=== PATIENT | male | born 1965 | race Caucasian/White ===

== ENCOUNTER 2016-06-15 08:00 | Inpatient (IN) | payer BC, OTHER ==
--- NOTE | ~2016-06-15 | OP ---
Record Of Operation [facility] [address] [facility] [place]. [address] NAME: JORGITO BOLANOS : 63 STATUS : ADM IN PAT#: [id number] AGE: 51 ADM/REG DATE : 06/15/16 MR#: [id number] REPORT SERV DATE: 06/15/16 DICTATED BY: JORGITO MCGILL DATE: 06/15/16 REPORT STATUS : Draft TRANSCRIBED BY: MODL DATE: 06/15/16 DATE OF PROCEDURE: PREOPERATIVE DIAGNOSES: 1. Severe disk degeneration, L5-S1. 2. Grade 1 spondylolisthesis/retrolisthesis, with severe foraminal stenosis, bilateral, L5- S1. 3. Partial drop foot, bilateral. POSTOPERATIVE DIAGNOSES: 1. Severe disk degeneration, L5-S1. 2. Grade 1 spondylolisthesis/retrolisthesis, with severe foraminal stenosis, bilateral, L5- S1. 3. Partial drop foot, bilateral. PROCEDURE: 1. Microscopic and navigation-assisted surgery. 2. Left and right L5-S1 hemilaminectomy, foraminotomy, and complete facetectomy. 3. Gottlieb sacral dome osteotomy, posterior column. 4. Transforaminal diskectomy, L5-S1. 5. Anterior interbody capstone cage insertion. 6. Posterolateral interbody fusion with local bone graft and allograft. 7. Posterior percutaneous Voyager instrumentation, L5-S1. SURGEON: Jorgito Mcgill D.O. COMMUNITY SPORTS COORDINATOR: Stephen Car. ANESTHESIA: General. ESTIMATED BLOOD LOSS: 100 mL. INDICATIONS FOR SURGERY: Indications for surgery and risks were explained. They are listed in last office note as well as the history and physical. See that for detail. DESCRIPTION OF PROCEDURE: Antibiotic prophylaxis was given. Neurophysiology monitoring leads were inserted. The patient was brought to the operative suite. General anesthetic including endotracheal intubation was administered. Grey catheter was inserted with sterile technique. The patient was placed prone on a Emmanuel spine frame. Bony prominences were carefully padded. Thoracolumbar spine scrubbed with solution. DuraPrep was painted. Sterile drapes were applied. A small stab wound was carried out over the right posterior superior iliac spine. A percutaneous pin with navigational frame attached was inserted in PSIS. Intraoperative CT scan with O-arm was obtained. CT information was used to register the navigational system. Record Of Operation [facility] [address] [facility] [place]. [address] NAME: JORGITO BOLANOS : 63 STATUS : ADM IN PAT#: [id number] AGE: 51 ADM/REG DATE : 06/15/16 MR#: [id number] REPORT SERV DATE: 06/15/16 DICTATED BY: JORGITO MCGILL DATE: 06/15/16 REPORT STATUS : Draft TRANSCRIBED BY: MODL DATE: 06/15/16 With navigational assistance, I identified the left and right facet joint starting on the right side just lateral to the facet joint. A 3 cm skin incision was carried out. A blunt navigated probe was placed through the fascia and muscle, and docked over the facet joint. Muscle dilator was inserted, followed by placement of a tubular retractor attached to an arm mount on the table. The microscope was sterilely draped and used throughout the remainder of the procedure. With navigational assistance, I determined the top of the pedicle of S1, the inferior pedicle of L5. I also planned to remove a very small 2 to 3 mm at the top of the pedicle of S1, as well as the posterior superior corner of the body of S1 to allow entry into the disk space below the exiting nerve root. I used a cutting bur, a bunny bur, with navigational assistance, I transected across the top of the pedicle of S1. I also transected through the lamina, I removed the entire lamina of L5, the pars interarticularis of L5, and skeletonized from the inferior pedicle of L5 to the superior pedicle of S1, and the Gottlieb posterior column osteotomy was carried out by using a cutting bur and bunny bur to remove the posterior superior corner of the body of S1, and created a sacral dome osteotomy. I then carried out a transforaminal diskectomy with curettes, rongeurs, and disk kwadwo, the posterior- inferior spondylitic bar that was compressing the exiting L5 nerve root was debrided and removed. The nerve was completely free of compression. After the transforaminal diskectomy was completed, the wound was irrigated. The retractor was removed. I moved to the left side. On the left side, I carried out the same identical steps. I carried out a 3 cm skin incision just lateral to the facet joint. I placed a tubular retractor. I then carried out the same identical technique with hemilaminectomy, foraminotomy, and complete facetectomy, the sacral dome Gottlieb osteotomy, followed by transforaminal diskectomy. Interbody trial was carried out. We then placed a 10 mm x 35 mm Capstone cage filled with allograft. The cage was inserted through the transforaminal approach into the midline against the anterior longitudinal ligament. A posterolateral interbody fusion with local bone graft, allograft, and extra-small dosage of bone protein was carried out. The retractor was removed. The navigational system was re-registered. The percutaneous Voyager pedicle screws were then placed by initially tapping the pedicle of L5 and S1 bilaterally, followed by placement of a 7.5 x 50 mm polyaxial Voyager screw at both L5 and S1 bilaterally. With the screw extenders, extending just above the skin the 35 mm Contoured lordotic captured olaf was placed through the top of the screw extenders, and reduced into the tulip of the pedicle screws. The set screws were inserted and tightened with a torque wrench providing rigid stability. The screw extenders were removed. Intraoperative AP and lateral x-rays were taken, as well as intraoperative CT scan, showing excellent position of the implants, and the complete decompression of the nerve roots. The fascial openings were closed with a single interrupted #1 Vicryl suture. The subcutaneous tissue closed with 2-0 Vicryl suture, 2-0 vertical mattress nylon suture was used for skin closure. Sterile dressings were applied. The patient awakened, extubated, and taken to recovery room in satisfactory condition having tolerated procedure well. Record Of Operation [address] [address] NAME: JORGITO BOLANOS : 63 STATUS : ADM IN [facility]#: [id number] AGE: 51 ADM/REG DATE : 06/15/16 MR#: [id number] REPORT SERV DATE: 06/15/16 DICTATED BY: JORGITO MCGILL DATE: 06/15/16 REPORT STATUS : Draft TRANSCRIBED BY: APRIL DATE: 06/15/16 EVELIA/APRIL Jorgito Mcgill D.O. / [id number] CC: Jorgito Mcgill D.O.
--- NOTE | ~2016-06-15 | PREOPHP ---
PreOp History and Physical [facility] [address] [place]. [address] NAME: JORGITO BOLANOS : 63 STATUS : ADM IN PAT#: [id number] AGE: 51 ADM/REG DATE : 06/15/16 MR#: [id number] REPORT SERV DATE: 06/15/16 DICTATED BY: JORGITO MCGILL DATE: 06/15/16 REPORT STATUS : Draft TRANSCRIBED BY: MODL DATE: 06/15/16 CHIEF COMPLAINT: Back pain and bilateral leg pain. HISTORY OF PRESENT ILLNESS: A 51-year-old male, who is disabled but presents with severe back pain and bilateral leg pain. He has been treated by Dr. Valerie Felix and another orthopedic surgeon in [facility] for degenerative disc disease and spinal stenosis. The patient's pain varies between 9 and 10 on a daily basis. It is worse at night or when he is going from sitting to standing. It is intensified also by standing and walking. He gets some relief by lying down and changing positions frequently. He has a normal Zung Depression Scale. He is nonsmoker. Plain x-rays reveal severe disc degeneration and collapse of the disc space at L5-S1. There is a large spondylotic bar along the posterior- inferior border of the body of C5. There is severe foraminal stenosis on the left and right side. There is a grade 1 retrolisthesis/spondylolisthesis at L5-S1. There is nerve impingement bilaterally on the L5 nerve roots. The patient also does have weakness bilaterally of L5 innervated musculature. With all the above, the patient is brought to surgery for left and right L5-S1 hemilaminectomy, foraminotomy, and complete facetectomy. There will be a nobles posterior column osteotomy because of the severe collapse of the disc space and this will allow some correction of the sacral slope as well. In addition, it will allow safe entry below the exiting nerve to avoid any potential nerve contusion or excessive retraction. The patient will have an interbody cage insertion and posterolateral interbody fusion. Finally, there be posterior percutaneous instrumentation using our Venture system. Prior to surgery, risks, benefits, alternatives, and expectations have been explained in great detail. Consent form has been signed. Also please note, because of the complexity of surgery and the need to identify correct level of surgery intraoperatively as well as desire to carry out the safest and most precise dissection, we feel intraoperative navigation is mandatory. PAST MEDICAL HISTORY: Included sleep apnea, hypothyroidism, hypercholesterolemia, diabetes mellitus type 2. He has had hypertension. Cardiac pacemaker due to dysrhythmia. He has had anxiety disorder and DVTs. PAST SURGICAL HISTORY: He has had anterior cervical discectomy and fusion. He has had a cardiac pacemaker and knee arthroscopy. CURRENT MEDICATIONS: Include Coumadin, Zanaflex, , Seroquel, Zantac, ProAir, hydrocodone, lisinopril, lovastatin, Nitrostat, pantoprazole, amlodipine, , Neurontin, and glyburide. ALLERGIES: NONE. SOCIAL HISTORY: He is . Disabled. Does not use any alcohol. He has been a smoker previously. FAMILY HISTORY: His mother had a malignant lymphoma. REVIEW OF SYSTEMS: PreOp History and Physical [address] [address] NAME: JORGITO BOLANOS : 63 STATUS : ADM IN [facility]#: [id number] AGE: 51 ADM/REG DATE : 06/15/16 MR#: [id number] REPORT SERV DATE: 06/15/16 DICTATED BY: JORGITO MCGILL DATE: 06/15/16 REPORT STATUS : Draft TRANSCRIBED BY: APRIL DATE: 06/15/16 He denies any current chest pain, pressure, or shortness of breath. He has had no recent change in bowel or bladder function. PHYSICAL EXAMINATION: VITAL SIGNS: He is 5 feet 10 inches, 280 pounds, although he appears to be even bigger, his BMI is 40.2. GENERAL: He is alert, cooperative, well oriented. He ambulates. HEENT: Normocephalic. He is partially balding. NECK: Supple. Pupils are equal and reactive to light. Extraocular muscles are intact. Oral exam is grossly normal. LUNGS: Clear to auscultation. HEART: Regular rate and rhythm. ABDOMEN: Soft with good bowel sounds. MUSCULOSKELETAL: The spine itself has no gross deformities. There is decreased range of motion particularly in extension with severe pain on extension, but some relief of flexion. He cannot heel walk. He can toe walk with coaxing. He has some stocking-glove decreased sensation from the mid leg distally bilaterally. His patella and Achilles reflexes are both completely absent. His motor strengths are normal except his EHL is 4-/5 bilaterally. His posterior tibialis and the tibialis anterior are also 4/5. Bridget signs are negative. Fabere signs are negative. Orthopedically, he has no pain with moving of hips, knees, or ankles. There are weak pulses in the lower extremities. SKIN: He has no abnormal skin lesions. ASSESSMENT AND RECOMMENDATIONS: As listed above. SH/MODL Jorgito Mcgill D.O. / [id number] CC: Jorgito Mcgill D.O.
--- NOTE | ~2016-06-15 | DS ---
Discharge Summary [facility] [address] [facility] [place]. [address] NAME: JORGITO BOLANOS : 63 STATUS : DIS IN PAT#: [id number] AGE: 51 ADM/REG DATE : 06/15/16 MR#: [id number] REPORT SERV DATE: 06/29/16 DICTATED BY: JORGITO MCGILL DATE: 06/28/16 REPORT STATUS : Draft TRANSCRIBED BY: MODL DATE: 06/28/16 Data Collection from hospitalization DISCHARGE DIAGNOSIS(ES): 1. Severe disk degeneration, L5-S1. 2. Grade 1 spondylolisthesis/retrolisthesis with severe foraminal stenosis, bilateral L5- S1. 3. Partial drop foot bilateral. 4. Type 2 diabetes mellitus. 5. History of hypertension. 6. Sleep apnea. 7. Hypothyroidism. 8. Hypercholesterolemia. 9. Anxiety disorder. 10.Former smoker. CONSULTATIONS: Qiana Dykes M.D. PROCEDURES PERFORMED: Microscopic and navigation-assisted surgery; left and right L5-S1 hemilaminectomy, foraminotomy, and complete facetectomy; Gottlieb sacral dome osteotomy, posterior column; transforaminal diskectomy, L5-S1; anterior interbody Capstone cage insertion; posterolateral interbody fusion with local bone graft and allograft; posterior percutaneous Voyager instrumentation, L5-S1, 06/15/2016. PATHOLOGY: Spine, bone, and tissue L5-S1 - fibrocartilage consistent with intervertebral disk, benign bone fragments with degenerative changes. MEDICATIONS: The patient left against medical advice. CONDITION AT DISCHARGE: DISPOSITION: The patient left against medical advice. HOSPITAL COURSE: This is a 51-year-old man who had been disabled, but presented with severe back and bilateral leg pain. He had been treated by Dr. Valerie Felix and another orthopedic surgeon in the [facility] for degenerative disk disease and spinal stenosis. He said that his pain varies between 9 and 10 on a daily basis. It is worse at night or when he goes from a sitting to standing position. It was intensified by standing and walking. He does get some relief by lying down and changing positions frequently. X-rays had revealed severe disk degeneration and collapse of the disk space at L5-S1. There is a large spondylotic bar along the posterior inferior border of the body of C5. There is severe foraminal stenosis on the left and right side. There is grade 1 retrolisthesis/spondylolisthesis at L5-S1. There is nerve impingement bilaterally on the L5 nerve root. The patient had weakness bilaterally at L5 innervated musculature. Treatment options were discussed and it was elected to proceed with surgical intervention. He was admitted to the hospital at this time for further evaluation and treatment. Upon admission, he was taken to the operating room where he underwent the above-mentioned Discharge Summary [address] [place]. [address] NAME: JORGITO BOLANOS : 63 STATUS : DIS IN PAT#: [id number] AGE: 51 ADM/REG DATE : 06/15/16 MR#: [id number] REPORT SERV DATE: 06/29/16 DICTATED BY: JORGITO MCGILL DATE: 06/28/16 REPORT STATUS : Draft TRANSCRIBED BY: APRIL DATE: 06/28/16 procedure. He tolerated this well and there were no complications. Postoperatively, he was seen by Dr. Qiana Dykes. He had been asked to see the patient regarding hypertension and diabetes mellitus. He did complain of severe low back pain. Sliding scale insulin was provided. Amaryl was held. Hemoglobin A1c was going to be checked. IV fluids were changed to normal saline. TEMO inhibitor and hydrochlorothiazide were held. He was to use his CPAP nightly. We encouraged him to stop smoking and using snuff. On postoperative day one, he was evaluated by Physical Therapy. Coumadin was given. He was doing well, was up walking in the gottlieb. He was felt to have some mild volume overload with congestive heart failure pattern on a chest x-ray. He denied any chest pain or shortness of breath. He was felt to have acute hypoxemic respiratory failure secondary to over sedation. He had some jerking movement of his upper extremities and legs. He would answer questions appropriately and then go back to sleep. O2 support and CPAP continued. Creatinine level had increased to 1.83. Nephrotoxins would be held. On the , he was in no acute distress. He was wanting to go home. He was making significant improvement. IV fluids were stopped. Grey catheter was removed. Creatinine had improved to 1.55. On 06/18/2016, the patient had a run of ventricular tachycardia. The patient was stating that he was ready for discharge. We spoke with the patient about what ventricular tachycardia was and explained that it was a life-threatening arrhythmia. The patient asked if his pacemaker would help with ventricular tachycardia and we told the patient, no, that only an AICD may help with ventricular tachycardia. The patient refused to let the [facility] Horticulture Supervisor see him. He said he wanted to go home and follow up with his outreach rep, Dr. Walter, the following Monday. We instructed the patient that he could go home and go into ventricular tachycardia and . We asked the patient if we could perform cardiac enzymes and EKG to assess his cardiac status, but he refused. He was asked to stay one more night, so we could monitor him and the patient refused. The patient was insistent upon leaving and he left the hospital against medical advice. Information collected by: Deandra Castro I submit the above information as my discharge summary. TG/MODL Jorgito Mcgill D.O. / [id number] CC: Jorgito Mcglil D.O.
[~2016-06-15 08:00] MED LIST: AMARYL2 PO; ASAB PO; ATARAX50B PO; C5 PO; DITRO5 PO; GAS-X80 MG PO; GLUCPH PO; HYDROCHLOROT12.5 MG PO; LOTE40 PO; LOVENOX40 SC; MAGOX4 PO; METHOC500B PO; MEVACOR40 MG PO; MIRAPEX250 PO; NEUR300 PO; NORCO1 TAB PO; NORV10 PO; PRIN20 PO; PROAIR HFA INH; PROAIRRESP INH; PROTONIX PO; PROZAC40 MG PO; SEROQUEL200 MG PO; SYN.05 PO; TRAZ100 PO; ZANAFLEX 4 MG TA4 MG PO; ZANTAC 150 PO; ZANTAC150 MG PO
[2016-06-15 09:27] LABS: HEMATOCRIT 39.1 % (40.0-51.0); HEMOGLOBIN 12.7 g/dL (13.6-17.8)
[2016-06-15 09:35] LABS: INTERNATIONAL NORMAL RATI 1.5 UNITS (-)
[2016-06-15 09:37] LABS: PROTIME (NOT ORD) 18.1 SEC (12.0-14.5)
[2016-06-15 09:39] LABS: CALCIUM, SERUM 8.9 MG/DL (8.5-10.4); CHLORIDE, SERUM 107 MMOL/L (96-112); CO2 (CARBON DIOXIDE) 29 MMOL/L (24-34); CREATININE 1.31 MG/DL (0.70-1.30); GFR AFRICAN AMERICAN 72 ML/MIN (>=60); GFR NON AFRICAN AMERICAN 62 ML/MIN (>=60); GLUCOSE, SERUM 115 MG/DL (60-99); POTASSIUM, SERUM 3.9 MMOL/L (3.5-5.3); SODIUM, SERUM 143 MMOL/L (135-148)
[2016-06-15 09:41] LABS: BUN (BLOOD UREA NITROGEN) 16 MG/DL (6-23)
[2016-06-15 14:27] LABS: BASOPHILS 0.3 %; BASOPHILS ABSOLUTE 0.02 10/3/uL (0.0-0.16); EOSINOPHILS 3.4 %; EOSINOPHILS ABSOLUTE 0.24 10/3/uL (0.0-0.53); HEMATOCRIT 35.8 % (40.0-51.0); HEMOGLOBIN 11.7 g/dL (13.6-17.8); IMMATURE GRANULOCYTES 0.7 %; IMMATURE GRANULOCYTES ABSOLUTE 0.05 10/3/uL (0.0-0.11); LYMPHOCYTES ABSOLUTE 2.16 10/3/uL (0.67-4.30); MEAN CORPUS HGB CONC 32.7 g/dL (32.0-36.0); MEAN CORPUSCULAR HEMOGLOB 24.8 pg (26.0-34.0); MEAN PLATELET VOLUME 9.4 fL (9.2-13.0); MONOCYTES ABSOLUTE 0.42 10/3/uL (0.21-1.20); NEUTROPHILS 58.6 %; NEUTROPHILS ABSOLUTE 4.07 10/3/uL (2.02-8.40); PLATELET COUNT 192 10/3/uL (150-400); RBC DISTRIBUTION WIDTH 15.5 % (12.0-16.0); RED CELL COUNT 4.72 10/6/uL (4.7-6.1)
[2016-06-15 14:28] LABS: MANUAL DIFF NO %; MEAN CORPUSCULAR VOLUME 75.8 fL (80-100)
[2016-06-15 14:40] LABS: BUN (BLOOD UREA NITROGEN) 17 MG/DL (6-23); CALCIUM, SERUM 8.5 MG/DL (8.5-10.4); CHLORIDE, SERUM 105 MMOL/L (96-112); CO2 (CARBON DIOXIDE) 30 MMOL/L (24-34); CREATININE 1.56 MG/DL (0.70-1.30); GFR AFRICAN AMERICAN 58 ML/MIN (>=60); GFR NON AFRICAN AMERICAN 50 ML/MIN (>=60); GLUCOSE, SERUM 104 MG/DL (60-99); POTASSIUM, SERUM 4.1 MMOL/L (3.5-5.3); SODIUM, SERUM 142 MMOL/L (135-148)
[2016-06-16 04:54] LABS: BASOPHILS 0.2 %; BASOPHILS ABSOLUTE 0.02 10/3/uL (0.0-0.16); EOSINOPHILS 0.7 %; EOSINOPHILS ABSOLUTE 0.08 10/3/uL (0.0-0.53); HEMATOCRIT 35.3 % (40.0-51.0); HEMOGLOBIN 11.2 g/dL (13.6-17.8); IMMATURE GRANULOCYTES 0.2 %; IMMATURE GRANULOCYTES ABSOLUTE 0.02 10/3/uL (0.0-0.11); LYMPHOCYTES 15.2 %; LYMPHOCYTES ABSOLUTE 1.82 10/3/uL (0.67-4.30); MANUAL DIFF NO %; MEAN CORPUS HGB CONC 31.7 g/dL (32.0-36.0); MEAN CORPUSCULAR HEMOGLOB 24.8 pg (26.0-34.0); MEAN CORPUSCULAR VOLUME 78.3 fL (80-100); MEAN PLATELET VOLUME 10.1 fL (9.2-13.0); MONOCYTES ABSOLUTE 0.96 10/3/uL (0.21-1.20); NEUTROPHILS 75.7 %; NEUTROPHILS ABSOLUTE 9.11 10/3/uL (2.02-8.40); PLATELET COUNT 224 10/3/uL (150-400); RBC DISTRIBUTION WIDTH 15.9 % (12.0-16.0); RED CELL COUNT 4.51 10/6/uL (4.7-6.1)
[2016-06-16 05:09] LABS: ALBUMIN 3.3 G/DL (3.5-5.0); BUN (BLOOD UREA NITROGEN) 19 MG/DL (6-23); CALCIUM, SERUM 8.1 MG/DL (8.5-10.4); CHLORIDE, SERUM 100 MMOL/L (96-112); CO2 (CARBON DIOXIDE) 30 MMOL/L (24-34); CREATININE 1.83 MG/DL (0.70-1.30); GFR AFRICAN AMERICAN 48 ML/MIN (>=60); GFR NON AFRICAN AMERICAN 41 ML/MIN (>=60); GLUCOSE, SERUM 112 MG/DL (60-99); PHOSPHORUS, SERUM 4.3 MG/DL (2.5-4.5); POTASSIUM, SERUM 4.3 MMOL/L (3.5-5.3); SODIUM, SERUM 138 MMOL/L (135-148)
[2016-06-16 13:24] LABS: BE (BASE EXCESS) -3.4 MEQ/L (0 +/- 2.5); CARBOXYHEMOGLOBIN 1.1 % (0-3); DEVICE NC; HCO3 (ACTUAL BICARBONATE) 21.1 MEQ/L (23-27); HEMOBLOGIN CONTENT 11.5 G/DL (14-18); INSTRUMENT SERIAL # 11843; METHEMOGLOBIN 0.4 % (0-3); PCO2 (CO2 TENSION) 36 MMHG (35-45); PO2 (O2 TENSION) 73 MMHG (79-93); SAMPLE Arterial; pH 7.39 (7.37-7.43)
[2016-06-16 13:25] LABS: ALLENS TEST Pos
[2016-06-16 14:04] LABS: BUN (BLOOD UREA NITROGEN) 22 MG/DL (6-23); CALCIUM, SERUM 7.9 MG/DL (8.5-10.4); CHLORIDE, SERUM 99 MMOL/L (96-112); CO2 (CARBON DIOXIDE) 25 MMOL/L (24-34); CREATININE 1.98 MG/DL (0.70-1.30); GFR AFRICAN AMERICAN 44 ML/MIN (>=60); GFR NON AFRICAN AMERICAN 38 ML/MIN (>=60); GLUCOSE, SERUM 130 MG/DL (60-99); PHOSPHORUS, SERUM 2.7 MG/DL (2.5-4.5); POTASSIUM, SERUM 4.5 MMOL/L (3.5-5.3); SODIUM, SERUM 133 MMOL/L (135-148); TROPONIN I <0.02 NG/ML (<0.05)
[2016-06-17 06:09] LABS: BASOPHILS 0.2 %; BASOPHILS ABSOLUTE 0.02 10/3/uL (0.0-0.16); EOSINOPHILS 0.1 %; EOSINOPHILS ABSOLUTE 0.01 10/3/uL (0.0-0.53); HEMATOCRIT 33.5 % (40.0-51.0); HEMOGLOBIN 10.8 g/dL (13.6-17.8); IMMATURE GRANULOCYTES 0.3 %; IMMATURE GRANULOCYTES ABSOLUTE 0.04 10/3/uL (0.0-0.11); LYMPHOCYTES 10.2 %; LYMPHOCYTES ABSOLUTE 1.21 10/3/uL (0.67-4.30); MEAN CORPUS HGB CONC 32.2 g/dL (32.0-36.0); MEAN CORPUSCULAR HEMOGLOB 24.9 pg (26.0-34.0); MEAN CORPUSCULAR VOLUME 77.4 fL (80-100); MEAN PLATELET VOLUME 9.3 fL (9.2-13.0); MONOCYTES 9.6 %; MONOCYTES ABSOLUTE 1.14 10/3/uL (0.21-1.20); NEUTROPHILS 79.6 %; NEUTROPHILS ABSOLUTE 9.45 10/3/uL (2.02-8.40); PLATELET COUNT 173 10/3/uL (150-400); RED CELL COUNT 4.33 10/6/uL (4.7-6.1); WHITE BLOOD CELLS 11.9 10/3/uL (4.5-10.5)
[2016-06-17 06:13] LABS: MANUAL DIFF NO %
[2016-06-17 06:20] LABS: INTERNATIONAL NORMAL RATI 1.5 UNITS (-)
[2016-06-17 06:21] LABS: ALBUMIN 2.9 G/DL (3.5-5.0); BUN (BLOOD UREA NITROGEN) 20 MG/DL (6-23); CALCIUM, SERUM 8.1 MG/DL (8.5-10.4); CHLORIDE, SERUM 105 MMOL/L (96-112); CO2 (CARBON DIOXIDE) 25 MMOL/L (24-34); CREATININE 1.55 MG/DL (0.70-1.30); GFR AFRICAN AMERICAN 59 ML/MIN (>=60); GFR NON AFRICAN AMERICAN 51 ML/MIN (>=60); GLUCOSE, SERUM 122 MG/DL (60-99); PHOSPHORUS, SERUM 2.3 MG/DL (2.5-4.5); POTASSIUM, SERUM 4.4 MMOL/L (3.5-5.3); SODIUM, SERUM 139 MMOL/L (135-148)
[2016-06-18 06:15] LABS: INTERNATIONAL NORMAL RATI 1.7 UNITS (-); PROTIME (NOT ORD) 19.4 SEC (12.0-14.5)
== END 2016-06-18 16:00 | disposition left against medical advice (07) | DRG 459 ==
LOC: SDC/OF 08:00 → PACU 14:07 → 3SO 16:11 → 2SO 06-16 14:45
PROVIDERS: Nurse Practitioner; Orthopaedic Surgery Orthopaedic Surgery of the Spine
DX: M43.17 Spondylolisthesis, lumbosacral region (principal); J96.01 Acute respiratory failure with hypoxia; I47.2 Ventricular tachycardia; N17.9 Acute kidney failure, unspecified; M51.37 Other intervertebral disc degeneration, lumbosacral region; M21.371 Foot drop, right foot; M21.372 Foot drop, left foot; E78.5 Hyperlipidemia, unspecified; E03.9 Hypothyroidism, unspecified; Z95.0 Presence of cardiac pacemaker; Z86.718 Personal history of other venous thrombosis and embolism; E66.9 Obesity, unspecified; Z68.39 Body mass index [BMI] 39.0-39.9, adult; N18.2 Chronic kidney disease, stage 2 (mild); E11.9 Type 2 diabetes mellitus without complications; I49.5 Sick sinus syndrome; I12.9 Hypertensive chronic kidney disease with stage 1 through stage 4 chronic kidney disease, or unspecified chronic kidney disease; G47.33 Obstructive sleep apnea (adult) (pediatric); J44.9 Chronic obstructive pulmonary disease, unspecified; F31.9 Bipolar disorder, unspecified; Z72.0 Tobacco use; Z99.81 Dependence on supplemental oxygen; F41.9 Anxiety disorder, unspecified; T88.59XA Other complications of anesthesia, initial encounter; Y84.8 Other medical procedures as the cause of abnormal reaction of the patient, or of later complication, without mention of misadventure at the time of the procedure; K21.9 Gastro-esophageal reflux disease without esophagitis; M48.07 Spinal stenosis, lumbosacral region
CPT/HCPCS: 36415; 36600; 71010; 80048; 80069; 82805; 82962; 83036; 83605; 83735; 84484; 85014; 85018; 85025; 85610; 86850; 86900; 86901; 87641; 88304; 88311; 93005; 94640; 97162-GP; A9270-GY; C1713; J0360; J0690; J1170; J1644; J2250; J2370; J2405; J2710; J3010